=== PATIENT | female | born 1975 | race Caucasian/White ===

== ENCOUNTER → 2020-05-09 | Outpatient (CLI) | payer OTHER ==
--- NOTE | 2020-05-13 10:51 | RAD ---
DATE: 05/09/2020 12:39 PM EXAM: MAMMO NICOLASA SCREENING BILATERAL HISTORY: Screening COMPARISON: Bilateral screening mammogram and diagnostic mammograms of 12/01/2017 and 12/22/2017 Bilateral CC and MLO views of the breasts were performed. Bilateral breast tomosynthesis was performed in CC and MLO projections. This study was interpreted with the benefit of Computerized Aided Detection (CAD). FINDINGS: Breast Density: SCATTERED The breast parenchyma shows scattered fibroglandular densities. Breast parenchyma level B Negative left mammogram. Focal asymmetry posterior right breast at the approximate 8:00 position 12 cm from the nipple needs additional imaging with spot compression views, full-field lateral view and possible targeted right breast ultrasound. IMPRESSION: Right breast focal asymmetry, findings for which additional imaging is advised. BI-RADS CATEGORY: 0 INCOMPLETE: NEEDS ADDITIONAL IMAGING EVALUATION AND/OR PRIOR MAMMOGRAMS FOR COMPARISON. RECOMMENDED FOLLOW-UP: ADD ADDITIONAL IMAGING Annual screening mammography is recommended, unless clinically indicated sooner based on symptoms or change in physical exam. PQRS compliance statement: Patient information was entered into a reminder system with a target due date for the next mammogram. Mammography is a sensitive method for finding small breast cancers, but it does not detect them all and is not a substitute for careful clinical examination. A negative mammogram does not negate a clinically suspicious finding and should not result in delay in biopsying a clinically suspicious abnormality. "Our facility is accredited by the [employer] Mammography [employer]."
== END ==
LOC: MAMMO 11:18
PROVIDERS: ATTEND Nurse Practitioner Family
DX: Z12.31 Encounter for screening mammogram for malignant neoplasm of breast (principal); N64.89 Other specified disorders of breast
CPT/HCPCS: 77063; 77067

== ENCOUNTER → 2020-05-30 | Outpatient (CLI) | payer OTHER ==
--- NOTE | 2020-05-30 16:59 | RAD ---
Examination: 1. Right digital diagnostic mammogram. 2. Limited right breast ultrasound. INDICATION: 44-year-old woman recalled from screening for focal asymmetry in the lower outer quadrant right breast. COMPARISON: Bilateral mammogram of 05/09/2020 TECHNIQUE: Spot compression views of the right breast in the CC projection were obtained along with a full field right ML view. Thereafter, targeted ultrasound of the lateral posterior right breast was performed. FINDINGS: Scattered fibroglandular densities. Additional views of the right breast showed a changing configuration of the questioned asymmetry in a pattern suggestive of benign overlap of fibroglandular tissue. No mammographic abnormality identifie d at the 8:00 position 12 cm from the nipple. Targeted ultrasound of the lateral right breast was performed revealing a 7 mm septated cyst with low -level internal echoes at the 11:00 position 6 cm from the nipple. No definite sonographic abnormalit y was identified in the lateral posterior right breast. Sonographic survey of the right axilla reveal ed no adenopathy. IMPRESSION: Probably benign findings in the right breast. BI-RADS Category 3 Probably benign Recommend 6 month follow-up right diagnostic mammogram and targeted right breast ultrasound. Patient entered into a reminder system with targeted due date for next mammogram. Electronically signed by: Wally Sevilla MD (05/30/2020 4:57 PM) [id number]
== END ==
LOC: MAMMO 12:52
PROVIDERS: ATTEND Nurse Practitioner Family
DX: N60.01 Solitary cyst of right breast (principal)
CPT/HCPCS: 76641; 77065

== ENCOUNTER → 2020-09-16 | Outpatient (CLI) | payer OTHER ==
--- NOTE | 2020-09-16 14:19 | RAD ---
EXAM: 1. Unilateral digital diagnostic mammography, right. 2. Right breast ultrasound. HISTORY: Right breast palpable focus at the 10:00 position. Right breast and axillary pain. TECHNIQUE: Bilateral full field digital images were obtained in CC and MLO projections. Computer-aide d detection was applied. COMPARISON: 05/30/2020, 05/09/2020, 12/22/2017, 12/01/2017. COMPOSITION: C. The breasts are heterogeneously dense, which may obscure small masses. FINDINGS: There is no mammographic correlate for a palpable focus at the 10:00 position. A density arambula periorly on the right MLO view resolves to its prior parenchymal appearance on spot compression. On today's sonography, a septated but otherwise anechoic oval mass at the 11:00 position 6 cm from th e nipple measures 8 x 4 mm and is unchanged since the prior study. There is no internal flow and this is likely a complicated cyst. In the area of tenderness in the right axilla, no abnormalities identi fied. Normal-appearing axillary lymph nodes are noted. At the site of right breast pain at the 10:00 position 10 cm from the nipple, only normal parenchyma is seen. There are no suspicious masses, microcalcifications or architectural distortion. The parenchymal isreal loida is stable. A few coarse calcifications are benign. BI-RADS CATEGORY 3: Probably Benign. RECOMMENDATION: 1. No suspicious correlate for right breast or right axillary tenderness. Recommend ongoing clinical follow-up of tenderness or palpable foci. 2. The sonographic lesion of concern at the 11:00 position 6 cm from the nipple appears stable. This was to be followed in November. That follow-up is now redundant. Right sonography is now recommended wh en the patient returns for her yearly examination in April 2021. Electronically signed by: Anais Franz MD (09/16/2020 2:16 PM) [id number]
== END ==
LOC: MAMMO 12:59
PROVIDERS: ATTEND Nurse Practitioner Family
DX: N64.4 Mastodynia (principal)
CPT/HCPCS: 76641; 77065; G0279; 77061

== ENCOUNTER → 2021-06-05 | Outpatient (CLI) | payer OTHER ==
--- NOTE | 2021-06-05 17:05 | RAD ---
EXAMINATION: MG DIGITAL BILAT DIAGNOSTIC MAMMO WITH NICOLASA, US BREAST LTD RT History: Annual mammogram and six-month follow-up of probably benign right breast mass Comparison: Right breast ultrasound 09/16/2020 and 05/30/2020. Mammogram 09/16/2020, 05/30/2020, and 2020. Technique: Bilateral digital diagnostic mammogram views were obtained. CAD was utilized. 3-D tomosyn thesis images were acquired. Focused ultrasound of the right breast in area of concern was performed Findings: Breast Tissue Density B : There are scattered areas of fibroglandular density. There are no dominant masses, suspicious microcalcifications, or architectural distortion. Ultrasound of the right breast: At 11:00, 6 cm from the nipple there is a circumscribed ovoid hypoech oic mass measuring 8 x 5 x 7 mm with some internal septations. The mass is parallel in orientation wi th mild posterior acoustic enhancement. This is unchanged. No axillary lymphadenopathy. IMPRESSION: Unchanged probably benign hypoechoic mass at 11:00 6 cm from the nipple in the right breast, likely a complicated cyst. Recommend follow-up right breast ultrasound in 12 months, when the patient is due for her annual bilateral mammogram. BI-RADS category 3: Probably benign. RECOMMENDATION: Annual bilateral mammogram and right breast ultrasound in 12 months. The images were reviewed with computer aided detection. Patient information is entered into the reminder system with a target due date for the next screening mammogram. Mammography is the most sensitive method for finding small breast cancers, but it does not detect the m all and is not a substitute for careful clinical examination. A negative mammogram does not negate a clinically suspicious finding and should not result in delay in biopsying a clinically suspicious a bnormality. "Our facility is accredited by the [employer] Mammography [employer]." Electronically signed by: Koki Dolan MD (06/05/2021 5:03 PM) [id number]
== END ==
LOC: MAMMO 13:58
PROVIDERS: ATTEND Family Medicine
DX: N64.9 Disorder of breast, unspecified (principal)
CPT/HCPCS: 76642; 77066; G0279; 77062